=== PATIENT | female | born 1950 | race Caucasian/White ===

== ENCOUNTER 2021-05-23 19:41 | Emergency (ER) | payer MEDICARE, BC ==
[2021-05-23] MEDS ORDERED: Benzonatate 100 MG Cap PO ONE (19:42)
--- NOTE | 2021-05-23 21:59 | EDM.PDOC ---
ED HPI GENERAL MEDICAL PROBLEM - General Chief Complaint: ENT Problem Stated Complaint: NECK GLANDS HURTING Time Seen by Provider: 05/23/21 20:30 Source of Information: Reports: Patient History Limitations: Reports: No Limitations - History of Present Illness INITIAL COMMENTS - FREE TEXT/NARRATIVE: ED with c/o sore throat and lymph glands swollen , more on right side. Glands fe lt swollen past 2 weeks. Seen in clinic 2 weeks ago, Hypothyroid and medication increased. No fever, No COVID exposure known, Not vaccinated. - Related Data Allergies Allergy/AdvReac Type Severity Reaction Status Date / Time Penicillins Allergy Swelling Verified 05/23/21 20:11 Home Meds: Home Meds Levothyroxine 112 mcg PO ACBREAKFAST 05/23/21 [History] Past Medical History Cardiovascular History: Reports: High Cholesterol Endocrine/Metabolic History: Reports: Hyperthyroidism - Past Surgical History Musculoskeletal Surgical History: Reports: Hip Replacement Social & Family History - Tobacco Use Tobacco Use Status *Q: Never Tobacco User Second Hand Smoke Exposure: No - Caffeine Use Caffeine Use: Reports: None - Recreational Drug Use Recreational Drug Use: No ED ROS ENT - Review of Systems Review Of Systems: Comprehensive ROS is negative, except as noted in HPI. ED EXAM, ENT - Physical Exam Exam: See Below Exam Limited By: No Limitations General Appearance: Alert, No Apparent Distress Eye Exam: Bilateral Eye: EOMI Ears: Normal External Exam, Normal Canal, Normal TMs Nose: Normal Inspection Mouth/Throat: Normal Inspection, Normal Oropharynx. No: Tonsillar Erythema, Tonsillar Exudates, Uvular Deviation Head: Atraumatic, Normocephalic Neck: Normal Inspection, Lymphadenopathy (R) (mild). No: Thyromegaly Respiratory/Chest: No Respiratory Distress, Lungs Clear, Normal Breath Sounds Cardiovascular: Regular Rate, Rhythm GI/Abdominal: Normal Bowel Sounds, Soft Extremities: Normal Inspection Neurological: Alert, Oriented, Normal Cognition Psychiatric: Normal Affect Skin: Warm, Dry, Intact, Normal Color Course - Vital Signs Last Recorded V/S: Last Vital Signs Temp 98.2 F 05/23/21 20:12 Pulse 96 05/23/21 20:12 Resp 18 05/23/21 20:12 BP 136/72 05/23/21 20:12 Pulse Ox 100 05/23/21 20:12 - Orders/Labs/Meds Labs: Laboratory Tests 05/23/21 Range/Units 20:24 SARS-CoV-2 RNA (MARGARITA) Negative (NEGATIVE) Meds: Medications Discontinued Medications Generic Name Dose Route Start Last Admin Trade Name Douglas PRN Reason Stop Dose Admin Benzonatate Confirm 05/23/21 22:11 Benzonatate 100 Mg Cap Administered 05/23/21 22:12 Dose 400 mg .ROUTE .STK-MED ONE Benzonatate 200 mg 05/23/21 19:42 Benzonatate 100 Mg Cap PO 05/23/21 19:43 .STK-MED ONE Departure - Departure Time of Disposition: 21:56 Disposition: Home, Self-Care 01 Condition: Good Clinical Impression: Sore throat (viral), Lymphadenopathy - Discharge Information *PRESCRIPTION DRUG MONITORING PROGRAM REVIEWED*: No *COPY OF PRESCRIPTION DRUG MONITORING REPORT IN PATIENT BRENT: No Instructions: Viral Illness, Adult, Pharyngitis, [id number] Forms: ED Department Discharge Additional Instructions: encourage fluids alternate tylenol and ibuprofen every 4 hours sa needed for discomfort tessalon 200mg every 8 hours as needed for cough clinic follow up 4-5 days if not improving or symptoms worsen Sepsis Event Note (ED) - Evaluation Sepsis Screening Result: No Definite Risk
[2021-05-23] MEDS ORDERED: Benzonatate 100 MG Cap ONE (22:11)
== END 2021-05-23 22:15 | disposition home or self-care (01) ==
LOC: DL.ED 19:41
DX: J02.8 Acute pharyngitis due to other specified organisms (principal); R59.0 Localized enlarged lymph nodes; E03.9 Hypothyroidism, unspecified; E78.00 Pure hypercholesterolemia, unspecified; Z88.0 Allergy status to penicillin; Z79.899 Other long term (current) drug therapy; Z20.822 Contact with and (suspected) exposure to COVID-19
CPT/HCPCS: 87081; 87430; 99283; A9270; U0002